=== PATIENT | female | born 1995 | race Caucasian/White ===

== ENCOUNTER 2023-03-30 07:54 | Outpatient (CLI) | payer OTHER ==
--- NOTE | 2023-04-02 09:22 | MRI Report ---
PROCEDURE: KNEE WO - LT INDICATIONS: LEFT KNEE PAIN TECHNIQUE: Noncontrast sagittal PD fast spin echo and T2 fast spin echo with fat saturation, sagittal 3-D gradie nt sequence with fat saturation; coronal T1 spin echo and PD fast spin echo with fat saturation, and axial PD fast spin echo with fat saturation through the knee. COMPARISON: None. FINDINGS: Image quality: Excellent. Menisci: There is nondisplaced horizontal tear in the peripheral aspect of the posterior horn the med ial meniscus (series 6 image 8). The lateral meniscus demonstrates normal morphology and internal sig nal. The meniscal root ligaments appear intact. Cruciate ligaments: The anterior and posterior cruciate ligaments appear intact. Medial structures: The medial collateral ligament appears intact. The semimembranosus tendon insert ions, and meniscocapsular junction appear intact. Visualized portions of the pes anserinus tendons a ppear normal. No abnormal bursal fluid. Lateral structures: The lateral collateral ligament and the biceps femoris tendon appear intact. Th e popliteus tendon appears normal. Iliotibial band appears normal. Anterior structures: The quadriceps and patellar tendons appear intact. Patellar alignment is cheyanne l. No femoral trochlear dysplasia or ventral trochlear prominence. There is mild edema in the superi or lateral aspect of the infrapatellar fat pad. Bones and cartilage: No bone marrow contusions or fractures. There is a full-thickness flap tear of the cartilage of the inferior patella (series 6 image 18). Cartilage of the medial and lateral femoro tibial compartments, as well as the patellofemoral compartment, appears normal in thickness. Joint space: There is trace knee joint fluid. No Beltran's cyst. Normal appearing synovial plicae ar e incidentally noted. IMPRESSION: 1. Horizontal tear of the posterior horn of the medial meniscus. 2. A full-thickness flap tear of the cartilage in the inferior aspect of patella. 3. Mild edema in the infrapatellar fat pad suggesting infrapatellar fat pad impingement. Reviewed by: Eliu Allen MD on 04/02/2023 9:21 AM PDT Approved by: Eliu Allen MD on 04/02/2023 9:21 AM PDT Station ID: [id number]
== END 2023-03-30 07:55 | disposition home or self-care (01) ==
LOC: DI 07:54
PROVIDERS: ATTEND Orthopaedic Surgery
DX: S83.242A Other tear of medial meniscus, current injury, left knee, initial encounter (principal); S76.112A Strain of left quadriceps muscle, fascia and tendon, initial encounter; R60.0 Localized edema

== ENCOUNTER 2024-03-14 07:01 | Outpatient (CLI) | payer OTHER ==
--- NOTE | 2024-03-16 14:44 | MRI Report ---
PROCEDURE: Shoulder LT WO INDICATIONS: LEFT SHOULDER PAIN TECHNIQUE: Noncontrast oblique coronal T2 fast spin echo with fat saturation, oblique sagittal T1 spin echo and T2 fast spin echo with fat saturation, axial T1 spin echo and T2 fast spin echo with fat saturation t hrough the shoulder. COMPARISON: None. FINDINGS: Image quality: Excellent. Rotator cuff: Low to moderate grade articular surface partial-thickness tear involving distal infrasp inatus at its insertion on humeral head is seen. Distal infraspinatus and subscapularis tendinosis is seen. No full-thickness rotator cuff tendon rupture. No rotator cuff muscle atrophy on sagittal imag es. Bones and bursae: No bone marrow contusions or fractures. No acromioclavicular joint degeneration. The acromion demonstrates conventional anatomy, without an os acromiale. No pathologic subacromial/ subdeltoid bursal fluid is present. Capsule and soft tissues: There is signal abnormality and fraying of anterior inferior labrum sugges tive of anterior inferior labral tear. The long head of the biceps tendon demonstrates normal locatio n and morphology. The rotator interval appears normal, without fibrosis. The coracohumeral ligament is normal in thickness. IMPRESSION: 1. Low to moderate grade articular surface partial-thickness tear involving distal supraspinatus. Dis frances infraspinatus and subscapularis tendinosis. No full-thickness rotator cuff tendon rupture. 2. No marrow edema. No fracture or dislocation. No significant joint effusion or subacromial subdelto id bursal fluid. 3. Suggestion of anterior inferior labral tear. Reviewed by: Burak Chamberlain MD on 03/16/2024 2:43 PM PDT Approved by: Burak Chamberlain MD on 03/16/2024 2:43 PM PDT Station ID: [id number]
== END 2024-03-14 07:02 | disposition home or self-care (01) ==
LOC: DI 07:01
PROVIDERS: ATTEND Family Medicine
DX: S46.012A Strain of muscle(s) and tendon(s) of the rotator cuff of left shoulder, initial encounter (principal)